=== PATIENT | male | born 1950 ===

== ENCOUNTER 2025-05-21 13:53 | Outpatient (AMB) | payer MEDICAID, SELFPAY ==
--- NOTE | 2025-05-21 13:59 | MHC.OFFVIS ---
Intake Visit Reasons: 2 Months Migrane/Dementia Allergies No Known Allergies Allergy (Verified 05/18/25 14:39) HPI Comments Details: The patient is a 75-year-old male presenting with memory impairment. Episodes of confusion, disorientation, and nocturnal discussions are noted, with variable occurrences of anger. His headaches are described as unusual sensations felt on one side, with alleviation attempts using ibuprofen being limited due to blood thinner interactions. Current medications include Memantine 5 mg twice daily, [place] at bedtime, and Depakote once a day, with a recent halt in some medications in anticipation of diagnostic studies. [facility] Medical History (Updated 05/21/25 @ 14:01 by Jeffrey Chavez MD) PAF (paroxysmal atrial fibrillation) HLD (hyperlipidemia) Hypertension Vascular dementia Depression Insomnia Migraine Cerebral microvascular disease Alzheimer disease Multifactorial dementia Review of Systems Const Details: - Neurological: Reports episodes of confusion, memory impairment, and headaches with a sensation of elado. - Psychological: Reports periods of anger and agitation. - General: Denies syncope. Physical Exam Neuro Other: Mental Status: He is alert and awake mostly keeping quite in his was communicating. Into was performed with the help of an boatswain's mate. Cranial Nerves: CN II: Visual ruano full to confrontation, visual acuity intact. CN III, IV, : Pupils equal, round, reactive to light and accommodation. Extraocular movements are normal. CN V: Facial sensation is normal. CN VII: Facial movements symmetrical. CN VIII: Hearing intact to bedside conversation is normal. CN IX, X: Palate elevates symmetrically. CN XI: Shoulder shrug and head turn symmetrical. CN XII: Tongue midline without atrophy or fasciculations. Extrapyramidal: Full facial expressions and blinking. No rigidity. Movements are appropriate with no tremor or abnormality. Speech: Normal; no dysarthria or tremor. Assessment & Plan Assessment & Plan (1) Multifactorial dementia: Comment: CT brain WO at [facility] in 2021: Mild PT atrophy, mild MVD Code(s): F03.90 - Unspecified dementia, unspecified severity, without behavioral disturbance, psychotic disturbance, mood disturbance, and anxiety Category: Medical (2) Migraine: Code(s): G43.909 - Migraine, unspecified, not intractable, without status migrainosus Category: Medical Qualifiers: Migraine type: migraine (< 15 days per month) without aura Status migrainosus presence: without status migrainosus Intractability: not intractable Qualified Code(s): G43.009 - Migraine without aura, not intractable, without status migrainosus Plan Impression: a: Moderate dementia probably of Alzheimer type b: Migraine type headaches. Rec: a: Memantine 5mg bid b: Donepezil 10mg at bedtime c: Divalproex acid 250mg one at bedtime Medications: New donepezil 10 mg PO BEDTIME 90 tabs 1RF Changed From divalproex 250 mg PO ONCE 90 tabs 0RF To divalproex 250 mg orally one at bedtime; 90 tabs 1RF Refilled memantine (Namenda) 5 mg PO BID 180 tabs 1RF 90 days Coding Level of Care Code Est Pt Level 4 (73776) Diagnoses Multifactorial dementia F03.90 Migraine without aura and without status migrainosus, not intractable G43.009 Migraine type: migraine (< 15 days per month) without aura Status migrainosus presence: without status migrainosus Intractability: not intractable
--- OUTSIDE RECORDS SUMMARY | 2025-05-21 14:45 | XMS_ITS | Clinical Summary ---
Author Organization [facility] Address [address] [place] [address] Phone Care Team Providers Care Senior Python Developer Name Role Phone Scooter Luong MD Primary Care Provider [phone] Allergies Active Allergy Reactions Criticality Noted Date Comments Oxycodone-Acetaminophen 02/10/2013 GI problem Warfarin 09/15/2024 Medications alcohol swabs (Alcohol Prep Pads) pads, medicated 1 each by Not Applicable route. 1 Active atorvastatin (LIPITOR) 40 mg tabletIndications :Essential hypertension Take 1 tablet (40 mg total) by mouth 1 (one) time each day. 90 tablet 1 5 Active dulaglutide (Trulicity) 3 mg/0.5 mL pen injector injectionIndicati ons:Type 2 diabetes mellitus with other specified complication, with long-term current use of insulin ([facility] V24, [facility] V28) Inject 0.5 mL (3 mg total) under the skin every 7 (seven) days. 3 mL 11 5 Active pen needle, diabetic (BD Ultra-Fine Short Pen Needle) 31 gauge x 5/16 needle Use to inject 1 times daily as directed 100 each 11 5 Active blood-glucose meter (OneTouch Verio Flex meter) misc Use to check BS daily 1 each 5 Active lancets lancets Check blood sugar 1 times a day or as directed 100 each 3 5 01/10/20 26 Active blood sugar diagnostic (OneTouch Verio test strips) test strip Use to check BS daily 100 each 5 02/17/20 26 Active amLODIPine (NORVASC) 10 mg tabletIndications :Essential hypertension Take 1 tablet (10 mg total) by mouth 1 (one) time each day. 90 each 1 5 08/23/20 25 Active apixaban (ELIQUIS) 5 mg tablet Take 1 tablet (5 mg total) by mouth 2 (two) times a day. 180 tablet 1 5 Active losartan (COZAAR) 50 mg tablet Take 1 tablet (50 mg total) by mouth 1 (one) time each day. 90 tablet 1 5 Active docusate sodium (Colace) 100 mg capsule Take 1 capsule (100 mg total) by mouth 2 (two) times a day. 180 each 1 5 Active acetaminophen (TYLENOL) 325 mg tablet Take 2 tablets (650 mg total) by mouth every 4 (four) hours if needed. 5 Active donepeziL (ARICEPT) 5 mg tablet Take 1 tablet (5 mg total) by mouth at bedtime. 5 Active divalproex (DEPAKOTE) [address] tablet Take 1 tablet (250 mg total) by mouth 1 (one) time each day. 5 Active empagliflozin (JARDIANCE) 10 mg tabletIndications :Type 2 diabetes mellitus with other specified complication, with long-term current use of insulin (CMS/[facility] V24, CMS/HCC V28) Take 1 tablet (10 mg total) by mouth 1 (one) time each day. 30 each 5 5 Active blood-glucose sensor (FreeStyle Medhat 3 Plus Sensor) deviceIndications :Type 2 diabetes mellitus with other specified complication, with long-term current use of insulin (CMS/HCC V24, CMS/HCC V28) Box = Kit = EA 2 each 5 Active blood-glucose,rec eiver,cont (FreeStyle Medhat 3 Lucien) miscIndications:T ype 2 diabetes mellitus with other specified complication, with long-term current use of insulin (CMS/HCC V24, CMS/HCC V28) Use to check Bs 1 each 5 Active insulin glargine (Lantus Solostar U-100 Insulin) 100 unit/mL (3 mL) injection penIndications:Ty pe 2 diabetes mellitus with other specified complication, with long-term current use of insulin ([facility] V24, [facility] V28) 16 units SC at bedtime 45 mL 3 5 Active memantine (NAMENDA) 5 mg tablet TOME LEONID TABLETA POR V A ORAL DOS VECES AL D A 5 Active mirtazapine (REMERON) 7.5 mg tablet Take 1 tablet (7.5 mg total) by mouth at bedtime. Active ibuprofen (ADVIL,MOTRIN) 400 mg tablet Take 1 tablet (400 mg total) by mouth every 6 (six) hours if needed for mild pain. Active Active Problems Problem Noted Date Diagnosed Date Odynophagia 04/08/2025 Globus sensation 04/08/2025 Weight loss 04/08/2025 Cerebrovascular accident (CVA) ([facility] V24, [facility] V28) 02/24/2025 A-fib ([facility] V24, [facility] V28) 09/15/2024 Overview (09/15/2024): Pradaxa due to coumadin allergy CAD (coronary artery disease) 09/15/2024 Essential hypertension 09/15/2024 Hand pain 09/15/2024 History of MA (myocardial infarction) 09/15/2024 Overview (09/15/2024): Stress Test by Dr. Hernandez in 01/2013, stable Cirrhosis ([facility] V24, [facility] V28) 03/06/2024 Chronic cough 06/12/2023 Overview (09/15/2024): Last Assessment & Plan: 73-year-old man, non-smoker with chronic cough for approximately 2 months. Patient denies any history of asthma, denies any wheezing or dyspnea on exertion and states that the cough is only occasional. Given the results of the pulmonary function test that were normal, I assured him that he does not have asthma or COPD. He he was prescribed with PPIs by primary care because of possible reflux. If he continue he may need a referral to GI that can produce the hoarseness and some cough. I will see him back in 6 months. Hoarseness 06/12/2023 Overview (09/15/2024): Last Assessment & Plan: Stents could be the result of irritation by reflux or local abnormalities. No acute findings on CT that can explain the hoarseness. He may need an indirect laryngoscopy. I have placed a referral to ENT for evaluation. Type 2 diabetes mellitus wit h other specified complication ([facility] V24, [facility] V28) 02/09/2023 Chronic midline low back pain without sciatica 0 02/02/2023 Thyroid nodule 12/08/2022 Overview (09/15/2024): Chest CT 12/19/2022 Head injury 09/04/2022 Ascending aorta dilation ([facility] V24) 8 Overview (09/15/2024): 4.2cm x 4.2cm on chest CT 03/06/2018 Erectile dysfunction 07/04/2017 Vitamin B12 deficiency 10/10/2016 Dyslipidemia 02/14/2013 Encounters Date Type Department Care Team Description 04/27/2025 Telephone Gastroenterology [facility] [address] [facility] 175 [facility] [address] [place] [address] Catarina Jones LPN Anticoagulation (Upper endoscopy on 05/22/[address] Torrez) 04/21/2025 Telephone [facility] - [facility] [address] [facility] [place] [address] Mia Gonzalez, KB Follow-up (Answering service call 04/19 regarding Divalproex) 04/17/2025 7:49 AM EDT - 04/17/2025 11:59 PM EDT Hospital Encounter [facility] Endoscopy [address] [place] [address] Adam Torrez MD Claudio, Raymund, CRNA Dasilva, John E, MD Odynophagia; Globus sensation; Weight loss Discharge Disposition: Home or Self Care 04/17/2025 Telephone Gastroenterology - [address] [phone] Adam Torrez MD 04/09/2025 9:30 AM EDT Office Visit Endocrinology - [address] [phone] Soledad Durbin PA Type 2 diabetes mellitus with other specified complication, with long-term current use of insulin (CMS/HCC V24, CMS/HCC V28) (Primary Dx); Thyroid nodule; Essential hypertension 04/09/2025 Telephone Endocrinology - [address] [phone] Soledad Durbin PA Medication Problem 04/09/2025 Telephone Gastroenterology - [address] [place] [phone] Adam Torrez MD 04/08/2025 1:40 PM EDT Consult Gastroenterology - [address] [place] [phone] Adam Torrez MD Odynophagia (Primary Dx); Globus sensation; Weight loss 04/08/2025 Telephone [facility] [address] [place], [place] [address], [place] [phone] Scooter Luong MD Fitting for DME 04/07/2025 10:15 AM EDT Office Visit [place] Medicine [address] [phone] Sharon Courtney NP Confusion (Primary Dx); Cerebrovascular accident (CVA), unspecified mechanism (CMS/HCC V24, CMS/HCC V28); Atrial fibrillation, unspecified type (CMS/HCC V24, CMS/HCC V28); Essential hypertension 04/06/2025 Telephone [facility] - [facility] [address] [place], [place] [address], [place] [phone] Scooter Luong MD Depression 04/01/2025 11:00 AM EDT [facility] [address] [place] [address] Shi Ness MD Loss of voice (Primary Dx); Thyroid nodule; Odynophagia 04/01/2025 8:34 AM EDT - 04/01/2025 11:59 PM EDT Hospital Encounter Radiology Department - [address] [phone] Thyroid nodule Discharge Disposition: Home or Self Care 04/01/2025 Telephone Endocrinology - [address] [phone] Soledad Durbin PA Thyroid Problem 03/17/2025 Telephone Internal Medicine - [address] [phone] Scooter Luong MD VNA 03/11/2025 Telephone Internal Medicine - [address] [phone] Scooter Luong MD Faxed Order ([facility] ([id number])) 03/09/2025 Telephone Internal Medicine - [address] [phone] Scooter Luong MD VNA 03/04/2025 Billing Patient Not Present Internal Medicine - [address] [phone] Scooter Luong MD Aphasia following cerebral infarction (Primary Dx); Permanent atrial fibrillation (CMS/HCC V24, CMS/HCC V28); Hypertensive chronic kidney disease w stg 1-4/unsp chr kdny; Type 2 diabetes mellitus with chronic kidney disease, without long-term current use of insulin, unspecified CKD stage (CMS/HCC V24, CMS/HCC V28); Chronic kidney disease, unspecified CKD stage; Old myocardial infarction; Hyperlipidemia, unspecified hyperlipidemia type; Other amnesia; Restlessness and agitation; Headache, unspecified headache type 02/27/2025 12:35 PM EDT - 02/27/2025 11:59 PM EDT Hospital En[facility] [address] [place] [address] Thyroid nodule Discharge Disposition: Home or Self Care 02/25/2025 Telephone [facility] [address] [phone] Scooter Luong MD Faxed Order ( [facility] ([id number])) 02/24/2025 10:30 AM EDT Office Visit Internal Medicine - [address] [phone] Scooter Luong MD Cerebrovascular accident (CVA), unspecified mechanism (CMS/HCC V24, CMS/HCC V28) (Primary Dx); Essential hypertension; Paroxysmal atrial fibrillation (CMS/HCC V24, CMS/HCC V28) 02/24/2025 Telephone [facility] [address] [phone] Scooter Luong MD Faxed Order ([facility] ([id number])) 02/24/2025 Telephone Internal Medicine - [address] [phone] Scooter Luong MD Faxed Order ([facility] ([id number])) 02/24/2025 Telephone Internal Medicine - [address] [phone] Scooter Luong MD Faxed Order ([facility] ([id number])) 02/20/[address] [phone] Soledad Durbin PA Medication Problem from Last 3 Months Immunizations Name Administration Dates Next Due Influenza Quadravalent, 0.5m l (Fluzone High-dose) 65yo and older 11/28/2020 Influenza trivalent, 0.5mL ( Fluzone High-dose) 65yo and older 07/06/2023,08/04/2022,08/27/2018,2016 Influenza trivalent, with preservative (Fluzone; Afluria) 6mo and older 08/20/2015,10/21/2014 Pneumococcal conjugate 13 va lent (Prevnar 13, PCV13) 2mo and older 06/02/2016 Td Tetanus diptheria (Tdvax) 7yo and older 02/13/2014 Surgical History Surgery Date Site/Laterality Comments KNEE SURGERY 1989 PROCEDURE: HISTORICAL KNEE SURGERY BACK SURGERY 1981, 1982, 1983 PROCEDURE: HISTORICAL BACK SURGERY Medical History Medical History Date Comments Type II or unspecified type diabetes mellitus without mention of complication, not stated as uncontrolled 1999 DX:Type II or unspecified ty pe diabetes mellitus without mention of complication, not stated as uncontrolled HTN (hypertension) 1999 DX:HTN (hyper tension) Hand pain DX:Hand pain History of MA (myocardial infarction) 2004 DX:History of MA (myocardial infarction); COMMENT: Stress Test by Dr. Hernandez in 01/2013, stable CAD (coronary artery disease) DX :CAD (coronary artery disease) A-fib (CMS/HCC V24, CMS/HCC V28) 2004 DX:A-fib ([facility]); COMMENT: on pradaxa by Dr. hernandez Thyroid nodule 12/08/2022 Family History Medical History Relation Name Comments Diabetes Brother 1 Hypertension Brother 2 Diabetes Father Hypertension Father Diabetes Mother Hypertension Mother Blindness Neg Hx Cataracts Neg Hx Glaucoma Neg Hx Macular degeneration Neg Hx Strabismus Neg Hx Relation Name Status Comments Brother 1 Brother 2 Father Mother Social History Tobacco Use Types Packs/Day Years Used Date Smoking Tobacco: Never Smokeless Tobacco: Never Tobacco Cessation:Counseling Given: Not Answered Alcohol Use Standard Drinks/Week Comments No 0 (1 standard drink = 0.6 oz pur e alcohol) Sex and Gender Information Value Date Recorded Sex Assigned at Not on file Legal Sex Male 2:31 PM EST Gender Identity Not on file Sexual Orientation Not on file Obstetrics History Last Filed Vital Signs Vital Sign Reading Time Taken Comments Blood Pressure 128/68 04/09/2025 9:36 AM EDT C Pulse 79 04/09/2025 9:36 AM EDT Temperature 36.1 C (96.9 F) 04/09/2025 9:36 AM EDT Respiratory Rate - - Oxygen Saturation 98% 01/07/2025 8:43 AM EDT Inhaled Oxygen Concentration - - Weight 87.1 kg (192 lb) 05/15/2025 10:00 AM EDT Height 193 cm (6' 4 ) 05/15/2025 10:00 AM EDT Body Mass Index 23.37 05/15/2025 10:00 AM EDT Plan of Treatment Upcoming Encounters Date Type Department Care Team (Late st Contact Info) Description 05/22/2025 9:30 AM EDT Hospital Encounter [facility] Endoscopy [address] [place] [phone] Adam Torrez MD [address] [address] Tu Kolb CRNA Need Address Info Anabel Romero MD [address] [place] [address] 06/19/2025 1:00 PM EDT Office Visit Internal Medicine - [address] [phone] Scooter Luong MD [address] [place] [address] Health Maintenance Due Date Last Done Comments Diabetes: Annual Foot Exam 01/09/1958 Diabetes: Annual Retina Eye Exam 01/09/1958 Zoster Vaccines (1 of 2) 01/09/1967 Pneumococcal Vaccine: 50+ Years (2 of 2 - PPSV23) 07/28/2016 06/02/2016 Falls Risk Assessment 09/16/2022 Medicare Annual Wellness Visit 09/16/2022 Social Influencers of Health Screening 09/16/2022 RSV Immunization Adult Patients (1 - 1-dose 75+ series) 01/09/2023 DTaP,Tdap,and Td Vaccines (2 - Td or Tdap) 02/14/2024 02/13/2014 COVID-19 Vaccine ( season) 2024 02/10/2022, 10/13/2021, 01/13/2021 Depression Screening 10/08/2024 Influenza Vaccine (#1) 2025 , 08/04/2022, 11/28/2020, Additional history exists Diabetes: Blood Sugar Control Test (HGBA1C) 10/10/2025 04/09/2025, 01/08/2025, 05/27/2024, Additional history exists Diabetes: Annual GFR (Glomerular Filtration Rate) 04/01/2026 04/01/2025, 05/27/2024 Hypertension/CHF/CAD Annual BMP Blood Test 04/01/2026 04/01/2025, 05/27/2024 Diabetes: Annual Urine Albumin-Creatinine Ratio (uACR) 04/06/2026 04/06/2025, 01/08/2025 Cholesterol Screening (Lipid Panel) 04/01/2030 04/01/2025, 05/27/2024, 05/27/2024 Hepatitis C Screening Completed 02/13/2014 HIB Vaccines Aged Out No longer eligi ble based on patient's age to complete this topic HPV Vaccines Aged Out No longer eligi ble based on patient's age to complete this topic Hepatitis A Vaccines Aged Out No long er eligible based on patient's age to complete this topic Hepatitis B Vaccines Aged Out No long er eligible based on patient's age to complete this topic IPV Vaccines Aged Out No longer eligi ble based on patient's age to complete this topic MMR Vaccines Aged Out No longer eligi ble based on patient's age to complete this topic Meningococcal ACWY Vaccine Aged Out N o longer eligible based on patient's age to complete this topic Meningococcal B Vaccine Aged Out No l onger eligible based on patient's age to complete this topic RSV Immunization Patients Under 20 months Aged Out No longer eligible based on patient's age to complete this topic Varicella Vaccines Aged Out No longer eligible based on patient's age to complete this topic Procedures Procedure Name Priority Date/Time Associated Diagnosis Comments HEMOGLOBIN A1C Routine 04/09/2025 10:11 AM EDT Type 2 diabetes mellitus with other specified complication, with long-term current use of insulin ([facility] V24, [facility] V28) POC GLUCOSE Routine 04/09/2025 9:30 AM EDT Type 2 diabetes mellitus with other specified complication, with long-term current use of insulin ([facility] V24, [facility] V28) MICROALBUMIN AND CREATININE WITH RATIO, URINE 24H Routine 04/06/2025 1:02 PM EDT Type 2 diabetes mellitus with other specified complication, with long-term current use of insulin (CMS/HCC V24, CMS/HCC V28) LIPID PANEL WITH REFLEX TO DIRECT LDL Routine 04/01/2025 12:15 PM EDT Essential hypertension ALANINE AMINOTRANSFERASE Routine 025 12:15 PM EDT Essential hypertension ASPARTATE AMINOTRANSFERASE Routine 04/01/2025 12:15 PM EDT Essential hypertension BASIC METABOLIC PANEL Routine 04/01/2025 12:15 PM EDT Essential hypertension COMPLETE BLOOD COUNT Routine 04/01/2025 12:15 PM EDT Restless leg Paroxysmal atrial fibrillation (CMS/HCC V24, CMS/HCC V28) THYROID STIMULATING HORMONE WITH REFLEX TO FREE T4 AND FREE T3 Routine 04/01/2025 12:15 PM EDT Thyroid nodule IRON AND TIBC Routine 04/01/2025 12:15 PM EDT Restless leg Paroxysmal atrial fibrillation (CMS/HCC V24, CMS/HCC V28) FERRITIN Routine 04/01/2025 12:15 PM EDT Restless leg Paroxysmal atrial fibrillation (CMS/HCC V24, CMS/HCC V28) US GUIDED FINE NDL ASP 1ST LESION Routine 04/01/2025 9:11 AM EDT Thyroid nodule US HEAD NECK SOFT TISSUE Routine 025 1:07 PM EDT Thyroid nodule HEPATITIS C SCREENING Routine 02/13/2014 from Last 3 Months or Most Recently Relevant to Health Maintenance Results * (ABNORMAL) Hemoglobin A1c (04/09/2025 10:11 AM EDT) Hemoglobin A1C 7.5(H) <6.5 % LAB CHEMISTRY METHOD 04/09/2025 1:54 PM EDT [facility] Mean Bld Glu Estim. 169 mg/dL LAB CHEMISTRY METHOD 04/09/2025 1:54 PM EDT [facility] Blood Venous blood specimen / Unknown Venipuncture / Unknown 04/09/2025 10:11 AM EDT 04/09/2025 10:11 AM EDT us Soledad KELLOGG LAB BLOOD ORDERABLES Final Result [facility] [address] [place] [address], * POC glucose manually resulted (04/09/2025 9:30 AM EDT) Glucose POC 127 mg/dL Comment:Fasting Blood Capillary blood specimen / Unknown 04/09/2025 9:30 AM EDT Soledad KELLOGG POINT OF CARE TEST ENTER/ED IT ORDERABLES Final Result * Microalbumin and creatinine with ratio, urine 24h (04/06/2025 1:02 PM EDT) [facility] Signature Microalb, Ur 7.5 0.0 - 29.0 mg/L LAB CHEMISTRY METHOD 04/06/2025 8:24 PM EDT [facility] Creatinine, Urine 46.0 mg/dL LAB CHEMISTRY METHOD 04/06/2025 8:24 PM EDT [facility] Microalb, 24H Ur 21.4 <30.0 mg/24 hr LAB CHEMISTRY METHOD 04/06/2025 8:24 PM EDT [facility] Microalb/Creat Ratio 16 <30 mg/g creat LAB CHEMISTRY METHOD 04/06/2025 8:24 PM EDT [facility] Urine Volume 2,850 mL LAB CHEMISTRY METHOD 04/06/2025 8:24 PM EDT [facility] Collection Interval, Ur 24 hr LAB CHEMISTRY METHOD 04/06/2025 8:24 PM EDT [facility] Urine Urine specimen from urethra / Unknown Non-blood Collection / Unknown 04/06/2025 1:02 PM EDT 04/06/2025 1:02 PM EDT us Soledad KELLOGG LAB URINE ORDERABLES Final Result Performing Organization Address [facility]/ZIP Co de Phone Number [facility] [address] [place] [address], [place] [phone] * Thyroid stimulating hormone with reflex to free t4 and free t3 (04/01/2025 12:15 PM EDT) Pathologist [facility] TSH 1.68 0.40 - 4.00 mcIU/mL LAB CHEMISTRY METHOD 04/01/2025 7:13 PM EDT [facility] Blood Venous blood specimen / Unknown Venipuncture / Unknown 04/01/2025 12:15 PM EDT 04/01/2025 12:15 PM EDT us Shi Ness MD LAB BLOOD ORDERABLES Final Res ult Performing Organization Address [facility] [[email or web address]] Co de Phone Number [facility] [address] [place] [address], [place] [phone] * (ABNORMAL) Lipid panel with reflex to direct LDL (04/01/2025 12:15 PM EDT) Cholesterol 106 0 - 200 mg/dL LAB CHEMISTRY METHOD 04/01/2025 5:03 PM EDT [facility] Triglycerides 151(H) 0 - 150 mg/dL LAB CHEMISTRY METHOD 04/01/2025 5:03 PM EDT [facility] HDL 29(L) >=40 mg/dL LAB CHEMISTRY METHOD 04/01/2025 5:03 PM EDT [facility] LDL Calculated 47 0 - 100 mg/dL LAB CHEMISTRY METHOD 04/01/2025 5:03 PM EDT [facility] VLDL Cholesterol Teddy 30.2 mg/dL LAB CHEMISTRY METHOD 04/01/2025 5:03 PM EDT [facility] Non HDL Chol. (LDL+VLDL) 77 <145 mg/dL LAB CHEMISTRY METHOD 04/01/2025 5:03 PM EDT [facility] Chol/HDL Ratio 3.7 0.0 - 4.4 LAB CHEMISTRY METHOD 04/01/2025 5:03 PM EDT [facility] Blood Venous blood specimen / Unknown Venipuncture / Unknown 04/01/2025 12:15 PM EDT 04/01/2025 12:15 PM EDT us Scooter Luong MD LAB BLOOD ORDERABLES Final Res ult Performing Organization Address [facility]/ZIP Co de Phone Number [facility] [address] [place] [address], [place] [phone] * (ABNORMAL) Iron and TIBC (04/01/2025 12:15 PM EDT) Iron 80 50 - 160 mcg/dL LAB CHEMISTRY METHOD 04/01/2025 5:03 PM EDT [facility] TIBC 247(L) 250 - 450 mcg/dL LAB CHEMISTRY METHOD 04/01/2025 5:03 PM EDT [facility] Iron Saturation 32 20 - 50 % LAB CHEMISTRY METHOD 04/01/2025 5:03 PM EDT [facility] Blood Venous blood specimen / Unknown Venipuncture / Unknown 04/01/2025 12:15 PM EDT 04/01/2025 12:15 PM EDT us Scooter Luong MD LAB BLOOD ORDERABLES Final Res ult Performing Organization Address City/[facility]/ZIP Co de Phone Number [facility] [address] [place] [address], * (ABNORMAL) Complete blood count (04/01/2025 12:15 PM EDT) [facility] WBC 8.9 4.8 - 10.8 K/mcL LAB HEMETOLOGY METHOD 04/01/2025 2:44 PM EDT [facility] RBC 4.80 4.50 - 5.50 M/mcL LAB HEMETOLOGY METHOD 04/01/2025 2:44 PM EDT [facility] Hemoglobin 14.3 13.5 - 17.5 g/dL LAB HEMETOLOGY METHOD 04/01/2025 2:44 PM EDT [facility] Hematocrit 43.4 42.0 - 54.0 % LAB HEMETOLOGY METHOD 04/01/2025 2:44 PM EDT [facility] MCV 90.4 79.0 - 98.0 FL LAB HEMETOLOGY METHOD 04/01/2025 2:44 PM EDT [facility] MCH 29.8 27.0 - 32.0 pcg LAB HEMETOLOGY METHOD 04/01/2025 2:44 PM EDT [facility] MCHC 32.9 32.0 - 37.0 g/dL LAB HEMETOLOGY METHOD 04/01/2025 2:44 PM EDT [facility] RDW 12.7 11.0 - 15.0 % LAB HEMETOLOGY METHOD 04/01/2025 2:44 PM EDT [facility] Platelets 230 130 - 400 K/mcL LAB HEMETOLOGY METHOD 04/01/2025 2:44 PM EDT [facility] MPV 11.6(H) 7.0 - 11.0 FL LAB HEMETOLOGY METHOD 04/01/2025 2:44 PM EDT [facility] NRBC 0.0 <1.0 % LAB HEMETOLOGY METHOD 04/01/2025 2:44 PM EDT [facility] NRBC Absolute 0.00 <0.10 K/mcL LAB HEMETOLOGY METHOD 04/01/2025 2:44 PM EDT [facility] Blood Venous blood specimen / Unknown Venipuncture / Unknown 04/01/2025 12:15 PM EDT 04/01/2025 12:15 PM EDT us Scooter Luong MD LAB BLOOD ORDERABLES Final Res ult Performing Organization Address [facility]/State/ZIP Co de Phone Number [facility] [address] [place] [address], [place] [phone] * Alanine aminotransferase (04/01/2025 12:15 PM EDT) ALT (SGPT) 22 10 - 60 unit/L LAB CHEMISTRY METHOD 04/01/2025 5:03 PM EDT [facility] Blood Venous blood specimen / Unknown Venipuncture / Unknown 04/01/2025 12:15 PM EDT 04/01/2025 12:15 PM EDT us Scooter Luong MD LAB BLOOD ORDERABLES Final Res ult Performing Organization Address [facility]/ZIP Co de Phone Number [facility] [address] [place] [address], [place] [phone] * Aspartate aminotransferase (04/01/2025 12:15 PM EDT) AST (SGOT) 11 10 - 42 unit/L LAB CHEMISTRY METHOD 04/01/2025 5:03 PM EDT [facility] Blood Venous blood specimen / Unknown Venipuncture / Unknown 04/01/2025 12:15 PM EDT 04/01/2025 12:15 PM EDT us Scooter Luong MD LAB BLOOD ORDERABLES Final Res ult [facility] [address] [place] [address], [place] [phone] * Ferritin (04/01/2025 12:15 PM EDT) [facility] Ferritin 179 26 - 388 ng/mL LAB CHEMISTRY METHOD 04/01/2025 5:03 PM EDT [facility] Blood Venous blood specimen / Unknown Venipuncture / Unknown 04/01/2025 12:15 PM EDT 04/01/2025 12:15 PM EDT Scooter Luong MD LAB BLOOD ORDERABLES Final Res ult Performing Organization Address [facility]/ZIP Co de Phone Number [facility] [address] [place] [address], [place] [phone] * (ABNORMAL) Basic metabolic panel (04/01/2025 12:15 PM EDT) [facility] Sodium 140 133 - 145 mmol/L LAB CHEMISTRY METHOD 04/01/2025 5:03 PM [facility] Potassium 4.9 3.5 - 5.5 mmol/L LAB CHEMISTRY METHOD 04/01/2025 5:03 PM [facility] Chloride 106 96 - 110 mmol/L LAB CHEMISTRY METHOD 04/01/2025 5:03 PM [facility] CO2 24 21 - 32 mmol/L LAB CHEMISTRY METHOD 04/01/2025 5:03 PM [facility] Anion Gap 10 3 - 11 LAB CHEMISTRY METHOD 04/01/2025 5:03 PM [facility] Glucose 215(H) 70 - 100 mg/dL LAB CHEMISTRY METHOD 04/01/2025 5:03 PM [facility] BUN 17 5 - 25 mg/dL LAB CHEMISTRY METHOD 04/01/2025 5:03 PM [facility] Creatinine 1.36(H) 0.70 - 1.30 mg/dL LAB CHEMISTRY METHOD 04/01/2025 5:03 PM EDT [facility] eGFR 54(L) >=60 mL/min/1. 73m2 LAB CHEMISTRY METHOD 04/01/2025 5:03 PM EDT [facility] Comment:Calculation based on the Chronic Kidney Disease Epidemiology Collaboration (CKD-EPI) equation refit without adjustment for race. BUN/Creatinine Ratio 12.5 LAB CHEMISTRY METHOD 04/01/2025 5:03 PM EDT [facility] Calcium 9.8 8.5 - 10.5 mg/dL LAB CHEMISTRY METHOD 04/01/2025 5:03 PM EDT [facility] Blood Venous blood specimen / Unknown Venipuncture / Unknown 04/01/2025 12:15 PM EDT 04/01/2025 12:15 PM EDT us Scooter Luong MD LAB BLOOD ORDERABLES Final Res ult [facility] [address] [place] [address], * US Guided Fine Ndl Asp 1st Lesion (04/01/2025 9:11 AM EDT) Anatomical Region Laterality Modality Ultrasound 04/01/2025 10:0 5 AM EDT Impressions 04/01/2025 10:08 AM EDT 1. The right midpole nodule was rescanned for identification purposes. The nodule is stable in size and morphology from the 12/12/2023 examination, therefore the procedure was canceled. Continue sonographic follow-up if clinically indicated Findings were explained to the patient and patient's grandson. -------- FINAL REPORT -------- Dictated By: Vinny Baca Dictated Date: 04/01/2025 10:05 ET Assigned Physician: Vinny Baca Reviewed and Electronically Signed By: Vinny Baca Signed Date: 04/01/2025 10:08 ET Workstation ID: [id number] Transcribed By: Self Edit Transcribed Date: 04/01/2025 10:05 ET Narrative 04/01/2025 10:08 AM EDT THYROID FNA CLINICAL HISTORY: Patient presents for ultrasound-guided fine-needle aspiration of the right mid pole thyroid nodule. PROCEDURES: 1. Limited pre procedure ultrasound of the right mid pole thyroid nodule. Findings: During the examination, the right midpole nodule was scanned for identification purposes. The nodule measured 1.0 x 1.4 x 1.1 cm and is morphologically stable in size and appearance from prior examination dated 12/12/2023. The patient also had sampling of this nodule on 01/03/2024. Therefore, the fine-needle aspiration today was canceled. Procedure Note Vinny Baca MD - 04/01/2025 THYROID FNA CLINICAL HISTORY: Patient presents for ultrasound-guided fine-needleaspiration of the right mid pole thyroid nodule. PROCEDURES: 1. Limited pre procedure ultrasound of the right mid pole thyroid nodule. Findings: During the examination, the right midpole nodule was scanned foridentification purposes. The nodule measured 1.0 x 1.4 x 1.1 cm and ismorphologically stable in size and appearance from prior examination dated12/12/2023. The patient also had sampling of this nodule on 01/03/2024.Therefore, the fine-needle aspiration today was canceled. IMPRESSION: 1. The right midpole nodule was rescanned for identification purposes.The nodule is stable in size and morphology from the 12/12/2023examination, therefore the procedure was canceled. Continue sonographicfollow-up if clinically indicated Findings were explained to the patient and patient's grandson. -------- FINAL REPORT -------- Dictated By: Vinny Baca Dictated Date: 04/01/2025 10:05 ET Assigned Physician: Vinny Baca Reviewed and Electronically Signed By: Vinny Baca Signed Date: 04/01/2025 10:08 ET Workstation ID: [id number] Transcribed By: Self Edit Transcribed Date: 04/01/2025 10:05 ET us Soledad KELLOGG IMJames US PROCEDURES Final Res ult * US Head Neck Soft Tissue (02/27/2025 1:07 PM EDT) Anatomical Region Laterality Modality Head and Neck Ultrasound 02/27/2025 2:52 PM EDT Addenda Addendum by Kate Mueller MD on 03/17/2025 2:54 PM EDT Addendum to the report. Enlarging nodule in the midpole of the right thyroid lobe is circumscribed with homogeneous slightly hypoechoic echotexture and no abnormal vascularity on color Doppler examination. Considering interval increase in size ultrasound-guided biopsy of this nodule is recommended. -------- ADDENDUM -------- Dictated By: Kate Mueller Dictated Date: 03/17/2025 14:44 ET Assigned Physician: Kate Mueller Reviewed and Electronically Signed By: Kate Mueller Signed Date: 03/17/2025 14:54 ET Workstation ID: [id number] Transcribed By: Self Edit Transcribed Date: 03/17/2025 14:44 ET Narrative 02/27/2025 3:10 PM EDT Thyroid ultrasound. History follow-up on thyroid nodules. Comparison with previous examination from 12/12/2023. Thyroid gland was visualized with normal echogenicity and flow on color Doppler examination. Right thyroid lobe measures 4.7 x 1.8 x 2.2 cm. There is interval enlargement of the solid nodule in the midpole which on today's study measuring 1.7 x 1.3 x 1.4 cm as opposed to 1.4 x 1.1 x 1 cm. There is are also slight interval enlargement of the nodule in the lower pole which on today's study measuring 0.9 x 0.6 x 0.8 cm, previously 0.7 x 0.5 x 0.8 cm. There are a few coarse calcifications in the face nodule. Left thyroid lobe was visualized measuring 4.2 x 1.3 x 1.4 cm. There is a tiny mixed echogenicity nodule in the midpole measuring 0.4 x 0.3 x 0.3 cm, previously 0.3 x 0.2 x 0.3 cm. Isthmus measures 3 mm. CONCLUSIONS: Interval enlargement of the nodules in the right thyroid lobe. Stable small nodule in the left thyroid lobe. -------- FINAL REPORT -------- Dictated By: Kate Mueller Dictated Date: 02/27/2025 14:52 ET Assigned Physician: Kate Mueller Reviewed and Electronically Signed By: Kate Mueller Signed Date: 02/27/2025 15:10 ET Workstation ID: [id number] Transcribed By: Self Edit Transcribed Date: 02/27/2025 14:52 ET Procedure Note Kate Mueller MD - 02/27/2025 Thyroid ultrasound. History follow-up on thyroid nodules. Comparison with previous examination from 12/12/2023. Thyroid gland was visualized with normal echogenicity and flow on colorDoppler examination. Right thyroid lobe measures 4.7 x 1.8 x 2.2 cm. There is intervalenlargement of the solid nodule in the midpole which on today's studymeasuring 1.7 x 1.3 x 1.4 cm as opposed to 1.4 x 1.1 x 1 cm. There is arealso slight interval enlargement of the nodule in the lower pole which ontoday's study measuring 0.9 x 0.6 x 0.8 cm, previously 0.7 x 0.5 x 0.8 cm.There are a few coarse calcifications in the face nodule. Left thyroid lobe was visualized measuring 4.2 x 1.3 x 1.4 cm. There is atiny mixed echogenicity nodule in the midpole measuring 0.4 x 0.3 x 0.3cm, previously 0.3 x 0.2 x 0.3 cm. Isthmus measures 3 mm. CONCLUSIONS: Interval enlargement of the nodules in the right thyroidlobe. Stable small nodule in the left thyroid lobe. -------- FINAL REPORT -------- Dictated By: Kate Mueller Dictated Date: 02/27/2025 14:52 ET Assigned Physician: Kate Mueller Reviewed and Electronically Signed By: Kate Mueller Signed Date: 02/27/2025 15:10 ET Workstation ID: [id number] Transcribed By: Self Edit Transcribed Date: 02/27/2025 14:52 ET Soledad KELLOGG IMG US PROCEDURES Edited Re sult - Final * Hepatitis C Screening (02/13/2014) Hepatitis C Screening negative Historical Provider HEALTH MAINTENANCE Final Result from Last 3 Months or Most Recently Relevant to Health Maintenance Insurance [employer] MEDICA[place] - [place] Care Teams Senior Python Developer Relationship Specialty Start Date End Date Scooter Luong MD [address] [place] [id number] PCP - General Internal Medicine 09/15/24
== END 2025-05-21 14:13 | disposition home or self-care (01) ==
LOC: HO.HSM 13:54
PROVIDERS: PCP Internal Medicine; Referring Provider Internal Medicine; Visit Provider Psychiatry & Neurology Neurology
DX: F03.90 Unspecified dementia, unspecified severity, without behavioral disturbance, psychotic disturbance, mood disturbance, and anxiety (principal); G43.009 Migraine without aura, not intractable, without status migrainosus
CPT/HCPCS: 99214

== ENCOUNTER → 2025-05-21 13:53 | Outpatient (BNVA) | payer MEDICAID, SELFPAY | PROVIDERS: PCP Internal Medicine; Referring Provider Internal Medicine; Visit Provider Psychiatry & Neurology Neurology | DX: G43.009 Migraine without aura, not intractable, without status migrainosus (principal); F03.90 Unspecified dementia, unspecified severity, without behavioral disturbance, psychotic disturbance, mood disturbance, and anxiety | CPT/HCPCS: 99212 ==

== ENCOUNTER 2025-08-24 14:22 | Outpatient (AMB) | payer MEDICAID, SELFPAY ==
--- NOTE | 2025-08-24 14:40 | MHC.OFFVIS ---
Intake Visit Reasons: Sooner appt, concerns per Allergies No Known Allergies Allergy (Verified 05/18/25 14:39) HPI Comments Details: The patient is a 75-year-old male presenting with behavioral disturbances and insomnia associated with his dementia. His primary caregiver reports a significant increase in nocturnal confusion, hallucinations, and episodes of agitation. Initially responsive to sleep medication, his sleep patterns have deteriorated, limiting rest to approximately 10 to 15-minute intervals. These episodes are punctuated by vivid hallucinations and episodes of wandering that escalate at night. His spouse, who manages his care, indicates that the patient's hallucinations include visions of birds trying to attack him, a symptom likely exacerbated by his advanced dementia. The headaches he experiences are being treated, though their impact on his overall condition remains undetermined. The management of these conditions is further complicated by concurrent medical issues, including hypertension, diabetes, and the need for anticoagulation therapy. Adjustments in medication were discussed to alleviate these symptoms. [facility] Medical History (Updated 05/21/25 @ 14:01 by Jeffrey Chavez MD) PAF (paroxysmal atrial fibrillation) HLD (hyperlipidemia) Hypertension Vascular dementia Depression Insomnia Migraine Cerebral microvascular disease Alzheimer disease Multifactorial dementia Review of Systems Narrative - Neurological: Reports insomnia, hallucinations, and confusion. - Psychiatric: Reports episodes of agitation and behavioral disturbances. - Cardiovascular: Reports hypertension. - Endocrine: Reports diabetes mellitus type 2. Physical Exam Neuro Other: Mental Status: He is alert and awake keeping quite while I talked to his with help of an oak tanner. Cranial Nerves: CN II: Visual ruano full to confrontation, visual acuity intact. CN III, IV, : Pupils equal, round, reactive to light and accommodation. Extraocular movements are normal. CN V: Facial sensation is normal. CN VII: Facial movements symmetrical. CN VIII: Hearing intact to bedside conversation is normal. CN IX, X: Palate elevates symmetrically. CN XI: Shoulder shrug and head turn symmetrical. CN XII: Tongue midline without atrophy or fasciculations. Extrapyramidal: Full facial expressions and blinking. No rigidity. Movements are appropriate with no tremor or abnormality. Speech: Normal; no dysarthria or tremor. Assessment & Plan Assessment & Plan (1) Multifactorial dementia: Comment: CT brain WO at [facility] in 2021: Mild PT atrophy, mild MVD Code(s): F03.90 - Unspecified dementia, unspecified severity, without behavioral disturbance, psychotic disturbance, mood disturbance, and anxiety Category: Medical (2) Migraine: Code(s): G43.909 - Migraine, unspecified, not intractable, without status migrainosus Category: Medical Qualifiers: Migraine type: migraine (< 15 days per month) without aura Status migrainosus presence: without status migrainosus Intractability: not intractable Qualified Code(s): G43.009 - Migraine without aura, not intractable, without status migrainosus Plan Impression: a: Moderate dementia probably of Alzheimer type b: Migraine type headaches. c: Insomnia related to dementia d: Behavior symptoms related to dementia Rec: a: DC Memantine. b: DC Donepezil c: Continue Divalproex acid 500mg one at bedtimed d: Quetiapine 50mg one at bedtime e: DC Trazodone f: Escitaloprim 10mg in am Medications: New quetiapine 50 mg PO DAILY 90 tabs 0RF Coding Level of Care Code Est Pt Level 3 (31225) Global (21037) Diagnoses Multifactorial dementia F03.90 Migraine without aura and without status migrainosus, not intractable G43.009 Migraine type: migraine (< 15 days per month) without aura Status migrainosus presence: without status migrainosus Intractability: not intractable Time Spent (min) 30
== END 2025-08-24 15:03 | disposition home or self-care (01) ==
LOC: HO.HSM 14:23
PROVIDERS: PCP Internal Medicine; Visit Provider Psychiatry & Neurology Neurology
DX: F03.90 Unspecified dementia, unspecified severity, without behavioral disturbance, psychotic disturbance, mood disturbance, and anxiety (principal); G43.009 Migraine without aura, not intractable, without status migrainosus
CPT/HCPCS: 99213; G2211

== ENCOUNTER → 2025-08-24 14:22 | Outpatient (BNVA) | payer MEDICAID, SELFPAY | PROVIDERS: PCP Internal Medicine; Visit Provider Psychiatry & Neurology Neurology | DX: G43.009 Migraine without aura, not intractable, without status migrainosus (principal); F03.90 Unspecified dementia, unspecified severity, without behavioral disturbance, psychotic disturbance, mood disturbance, and anxiety | CPT/HCPCS: 99212 ==

== ENCOUNTER 2025-09-25 12:08 | Outpatient (AMB) | payer OTHER, MEDICAID, SELFPAY ==
--- NOTE | 2025-09-25 12:24 | A.OFFVIS_ITS ---
Intake Visit Reasons: Telehealth - Hallucinating Clothes Ironer Required: Yes Clothes Ironer Services: Clothes Ironer Present Clothes Ironer Name: Clothes Ironer ID number [id number] Information Interpreted: non-clinical & clinical Allergies No Known Allergies Allergy (Verified 05/18/25 14:39) HPI Comments Details: Nathaniel is a 75-year-old male patient with a past medical history of Hypertension, hyperlipidemia, paroxysmal atrial fibrillation on Eliquis, mixed dementia including Alzheimer's and vascular component, depression, insomnia, and behavioral disturbances presenting for a telehealth visit accompanied by his from [place] who provides most of today's history. She tells me that she is having significant difficulty with her 's behaviors at home. She tells me that he has not been sleeping at night, he has been agressive, and he is not eating. He is obsessing over the desire to go outside and looking for birds. He continues to have hallucinations and delu sions. He has not been taking his donepezil or memantine as advised by Dr. Chavez at time of last visit. He has not been taking his medications regularly due to refusals from time to time but seems to be taking the depakote 500mg nightly pretty regularly. His feels that the quetiapine has made his behaviors worse and she has tried giving him lorazepam but it has been ineffective. She has also tried giving him lorazepam which she has not found to be helpful. She also feels as though the escitalopram has made things worse. In general, she has a lot of difficulty knowing which medications has been helpful and which medications have not. She has concerns regarding polypharmacy. She has however been consistent with the Depakote 500 mg nightly which she so far has not felt has made him any worse but is not convinced that it is helping in any way. He has continued his other medications for blood pressure, atrial fibrillation, and cholesterol. [facility] Medical History (Updated 05/21/25 @ 14:01 by Jeffrey Chavez MD) PAF (paroxysmal atrial fibrillation) HLD (hyperlipidemia) Hypertension Vascular dementia Depression Insomnia Migraine Cerebral microvascular disease Alzheimer disease Multifactorial dementia Review of Systems Const All systems reviewed & are unremarkable except as noted in HPI and below Physical Exam Exam Exam: Deferred due to mode of visit. Telehealth Telehealth Telehealth Platform: Other (please specify) (VOYCE system with dial out from multifocal lens assembler ) Location of provider rendering services: practice address Location of patient: address on file Patient Identification confirmed using: Name, : Yes Telehealth method: voice only Patient verbally consented to treatment: Yes Patient verbally consented to billing insurance company: Yes Patient informed of any privacy concerns related to visit: Yes Minutes spent on Phone/Video with Pt.: 20 Assessment & Plan Assessment & Plan (1) Multifactorial dementia: Comment: [facility] brain WO at [facility] in 2021: Mild PT atrophy, mild MVD Code(s): F03.90 - Unspecified dementia, unspecified severity, without behavioral disturbance, psychotic disturbance, mood disturbance, and anxiety Category: Medical Plan Nathaniel is a 75-year-old male patient with a past medical history of Hypertension, hyperlipidemia, paroxysmal atrial fibrillation on Eliquis, mixed dementia including Alzheimer's and vascular component, depression, insomnia, and behavioral disturbances presenting for a telehealth visit accompanied by his from [place] who provides most of today's history. She has significant concerns regarding his medication and does not feel that any of what we have been prescribing has been helpful recently. He was recently taken off of his donepezil and memantine and placed on a higher dose of Depakote as well as Seroquel and escitalopram. She feels that the Seroquel and escitalopram have made things worse and does not feel that the lorazepam has made things any better in terms of sleeping. I am advising for 1 week that we continue the Depakote only. Once he has come off of the other medications, I would advise to start medications to help his moods 1 x 1 to better identify what is working and what is not working for him. We will follow up closely. I will have them return in a proximally 1 week at which time we will likely retry some of the existing medications 1 by 1. Plan: Continue Depakote 500 mg nightly For now, stop the quetiapine and escitalopram Follow-up in 1 week for medication adjustments Medications: Changed From apixaban (Eliquis) 5 mg PO BID To apixaban (Eliquis) 1x fill as a courtesy. Please do not send me future refill requests for this medication. 5 mg PO BID 60 tabs 0RF 30 days Coding Level of Care Code Tele Est Pt Level 4 (19559) Diagnoses Multifactorial dementia F03.90
--- OUTSIDE RECORDS SUMMARY | 2025-09-25 14:11 | XMS_ITS | Clinical Summary ---
Author Organization [facility] Address [address] [place] [address] Phone Care Team Providers Care Healthcare Analyst Name Role Phone Scooter Luong MD Primary Care Provider [phone] Allergies Active Allergy Reactions Criticality Noted Date Comments Oxycodone-Acetaminophen 02/10/2013 GI problem Warfarin 09/15/2024 Medications alcohol swabs (Alcohol Prep Pads) pads, medicated 1 each by Not Applicable route. 06/10/20 21 Active pen needle, diabetic (BD Ultra-Fine Short Pen Needle) 31 gauge x 5/16 needle Use to inject 1 times daily as directed 100 each 11 01/08/20 25 Active blood-glucose meter (OneTouch Verio Flex meter) misc Use to check BS daily 1 each 01/08/20 25 Active lancets lancets Check blood sugar 1 times a day or as directed 100 each 3 01/10/20 25 026 Active apixaban (ELIQUIS) 5 mg tablet Take 1 tablet (5 mg total) by mouth 2 (two) times a day. 180 tablet 1 02/25/20 25 Active losartan (COZAAR) 50 mg tablet Take 1 tablet (50 mg total) by mouth 1 (one) time each day. 90 tablet 1 02/25/20 25 Active docusate sodium (Colace) 100 mg capsule Take 1 capsule (100 mg total) by mouth 2 (two) times a day. 180 each 1 02/25/20 25 Active donepeziL (ARICEPT) 5 mg tablet Take 1 tablet (5 mg total) by mouth at bedtime. 03/20/20 25 Active empagliflozin (JARDIANCE) 10 mg tabletIndication s:Type 2 diabetes mellitus with other specified complication, with long-term current use of insulin ([facility] V24, [facility] V28) Take 1 tablet (10 mg total) by mouth 1 (one) time each day. 30 each 5 04/09/20 25 Active blood-glucose sensor (FreeStyle Medhat 3 Plus Sensor) deviceIndication s:Type 2 diabetes mellitus with other specified complication, with long-term current use of insulin ([facility] V24, [facility] V28) Box = Kit = EA 2 each 11 04/09/20 25 Active blood-glucose,re ceiver,cont (FreeStyle Medhat 3 Platina) miscIndications: Type 2 diabetes mellitus with other specified complication, with long-term current use of insulin ([facility] V24, [facility] V28) Use to check Bs 1 each 04/09/20 25 Active insulin glargine (Lantus Solostar U-100 Insulin) 100 unit/mL (3 mL) injection penIndications:T ype 2 diabetes mellitus with other specified complication, with long-term current use of insulin ([facility] V24, [facility] V28) 16 units SC at bedtime 45 mL 3 04/09/20 25 Active memantine (NAMENDA) 5 mg tablet TOME LEONID TABLETA POR V A ORAL DOS VECES AL D A 04/24/20 25 Active mirtazapine (REMERON) 7.5 mg tablet Take 1 tablet (7.5 mg total) by mouth at bedtime. Active hztaadib-ahb-ppq fran fumarate 15 mg iron tablet TOME 1 TABLETA POR V A ORAL TODOS LOS D 06/03/20 25 Active traZODone (DESYREL) 50 mg tablet Take 1 tablet (50 mg total) by mouth at bedtime. 06/03/20 25 Active Lexapro 10 mg tablet Take 1 tablet (10 mg total) by mouth 1 (one) time each day. 06/03/20 25 Active atorvastatin (LIPITOR) 40 mg tabletIndication s:Essential hypertension Take 1 tablet (40 mg total) by mouth 1 (one) time each day. 90 tablet 1 06/19/20 25 Active dulaglutide (Trulicity) 3 mg/0.5 mL pen injector injectionIndicat ions:Type 2 diabetes mellitus with other specified complication, with long-term current use of insulin ([facility] V24, [facility] V28) Inject 0.5 mL (3 mg total) under the skin every 7 (seven) days. 2 mL 11 06/29/20 25 Active amLODIPine (NORVASC) 10 mg tabletIndication s:Essential hypertension TAKE 1 TABLET BY MOUTH 1 TIME EACH DAY. 90 tablet 1 09/02/20 Active glucose blood (OneTouch Ultra Test) test strip USE TO CHECK BLOOD SUGAR DAILY 100 strip 09/22/20 Active blood sugar diagnostic (OneTouch Verio test strips) test strip Use to check BS daily 100 each 02/17/20 25 025 Discontinued amLODIPine (NORVASC) 10 mg tabletIndication s:Essential hypertension Take 1 tablet (10 mg total) by mouth 1 (one) time each day. 90 each 1 02/25/20 25 025 Discontinued Active Problems Problem Noted Date Diagnosed Date Odynophagia 04/08/2025 Globus sensation 04/08/2025 Weight loss 04/08/2025 Cerebrovascular accident (CVA) 02/24/2025 A-fib 09/15/2024 Overview (09/15/2024): Pradaxa due to coumadin allergy CAD (coronary artery disease) 09/15/2024 Essential hypertension 09/15/2024 Hand pain 09/15/2024 History of PR (myocardial infarction) 09/15/2024 Overview (09/15/2024): Stress Test by Dr. Hernandez in 01/2013, stable Cirrhosis 03/06/2024 Chronic cough 06/12/2023 Overview (09/15/2024): Last [...] ENT for evaluation. 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 Overview (09/15/2024): 4.2cm x 4.2cm on chest CT 03/06/2018 Erectile dysfunction 07/04/2017 Vitamin B12 deficiency 10/10/2016 Dyslipidemia 02/14/2013 Encounters Date Type Department Care Team Description 08/03/2025 Telephone [facility] [address] [place] [address] Scooter Luong MD from Last 3 Months Immunizations Immunization Administration Dates Next Due Influenza Quadravalent, 0.5m l (Fluzone High-dose) 65yo and older 11/28/2020 Influenza trivalent, 0.5mL ( Fluzone High-dose) 65yo and older 05/24/2025,07/06/2023,08/04/2022,2017,07/04/2017 Influenza trivalent, with preservative (Fluzone; Afluria) 6mo and older 08/20/2015,10/21/2014 Pneumococcal conjugate 13 va lent (Prevnar 13, PCV13) 2mo and older 06/02/2016 RSV, bivalent, protein subun it RSVpreF, 0.5mL, Preservative Free (ABRYSVO) 50yo and older or 32 through 36 wks of 05/24/2025 Td Tetanus diptheria (Tdvax) 7yo and older 02/13/2014 Tdap Tetanus diptheria acell ular pertussis (Boostrix; Adacel) 7yo and older 05/24/2025 Surgical History Surgery Date Site/Laterality Comments KNEE [...] tension) Hand pain DX:Hand pain History of PR (myocardial infarction) 2004 DX:History of PR (myocardial infarction); COMMENT: Stress Test by Dr. Hernandez in 01/2013, stable CAD (coronary artery disease) DX :CAD (coronary artery disease) A-fib ([facility] V24, [facility] V28) 2004 DX:A-fib ([facility]); COMMENT: on pradaxa by Dr. hernandez Thyroid nodule 12/08/2022 TIA (transient ischemic attack) Hyperlipidemia Family History Medical History Relation Name Comments [...] drink = 0.6 oz pur e alcohol) Interpersonal Safety Answer Date Record ed Physical Abuse Unrecognized value 05/22/2025 Verbal Abuse Unrecognized value 05/22/2025 Sex and Gender Information Value Date Recorded Sex Assigned at Not on file Legal Sex Male 2:31 PM EST Gender Identity Not on file Sexual Orientation Not on file Last Filed Vital Signs Vital Sign Reading Time Taken Comments Blood Pressure 140/77 06/19/2025 12:44 PM EDT Pulse 83 06/19/2025 12:44 PM EDT Temperature 36.8 C (98.2 F) 05/22/2025 10:02 AM EDT Respiratory Rate 16 05/22/2025 10:2 2 AM EDT Oxygen Saturation 98% 05/22/2025 10: 22 AM EDT Inhaled Oxygen Concentration - - Weight 84.3 kg (185 lb 14.4 oz) 025 12:44 PM EDT Height 193 cm (6' 4 ) 06/19/2025 12:44 PM EDT Body Mass Index 22.63 06/19/2025 12:44 PM EDT Plan of Treatment Health Maintenance Due Date Last Done Comments Diabetes: Annual Foot Exam 01/09/1958 Diabetes: Annual Retina Eye Exam 01/09/1958 Zoster Vaccines (1 of 2) 01/09/1967 Pneumococcal Vaccine: 50+ Years (2 of 2 - PPSV23, PCV20, or PCV21) 07/28/2016 06/02/2016 Medicare Annual Wellness Visit 09/16/2022 Social Influencers of Health Screening 09/16/2022 Depression Screening 10/08/2024 COVID-19 Vaccine ( season) 2025 02/10/2022, 10/13/2021, 01/13/2021 Diabetes: Blood Sugar Control Test (HGBA1C) 10/10/2025 04/09/2025, 01/08/2025, 05/27/2024, Additional history exists Diabetes: Annual GFR (Glomerular Filtration Rate) 04/01/2026 04/01/2025, 05/27/2024 Hypertension/CHF/CAD Annual BMP Blood Test 04/01/2026 04/01/2025, 05/27/2024 Diabetes: Annual Urine Albumin-Creatinine Ratio (uACR) 04/06/2026 04/06/2025, 01/08/2025 Falls Risk Assessment 05/22/2026 05/22/2025 Cholesterol Screening (Lipid Panel) 04/01/2030 04/01/2025, 05/27/2024, 05/27/2024 DTaP,Tdap,and Td Vaccines (3 - Td or Tdap) 05/24/2035 05/24/2025, 02/13/2014 Hepatitis C Screening Completed 02/13/2014 Influenza Vaccine Completed 05/24/2025, , 08/04/2022, Additional history exists RSV Immunization Adult Patients Completed 05/24/2025 HIB Vaccines Aged Out No longer eligi [...] complication, with long-term current use of insulin ([facility] V24, [facility] V28) MICROALBUMIN AND CREATININE WITH RATIO, URINE 24H Routine 04/06/2025 1:02 PM EDT Type 2 diabetes mellitus with other specified complication, with long-term current use of insulin ([facility] V24, [facility] V28) BASIC METABOLIC PANEL Routine 04/01/2025 12:15 PM EDT Essential hypertension LIPID PANEL WITH REFLEX TO DIRECT LDL Routine 04/01/2025 12:15 PM EDT Essential hypertension HEPATITIS C SCREENING Routine 02/13/2014 from Last 3 Months or Most Recently Relevant to Health Maintenance Results * (ABNORMAL) Hemoglobin A1c (04/09/2025 10:11 AM EDT) Hemoglobin A1C 7.5(H) <6.5 % LAB CHEMISTRY METHOD 04/09/2025 1:54 PM EDT [facility] Mean Bld Glu Estim. 169 mg/dL LAB CHEMISTRY METHOD [facility]/09[facility]2025 [facility] Blood Venous blood specimen / Unknown Venipuncture / Unknown 04/09/2025 10:11 AM EDT 04/09/2025 10:11 AM EDT Soledad KELLOGG LAB BLOOD ORDERABLES Final Result [facility] [address] [place] [address], [place] [phone] * Microalbumin and creatinine with ratio, urine 24h (04/06/2025 1:02 PM EDT) Microalb, Ur 7.5 0.0 - 29.0 mg/L LAB CHEMISTRY METHOD 04/06/2025 8:24 PM EDT [facility] Creatinine, Urine 46.0 mg/dL LAB CHEMISTRY METHOD 04/06/2025 8:24 PM EDT [facility] Microalb, 24H Ur 21.4 <30.0 mg/24 hr LAB CHEMISTRY METHOD 04/06/2025 8:24 PM T [facility] Microalb/Creat Ratio 16 <30 mg/g creat LAB CHEMISTRY METHOD 04/06/2025 8:24 [facility] Urine Volume 2,850 mL LAB CHEMISTRY METHOD 04/06/2025 8:[address] [facility] Collection Interval, Ur 24 hr LAB CHEMISTRY METHOD 04/06/2025 8:24 PM T [facility] Urine Urine specimen from urethra / Unknown Non-blood Collection / Unknown 04/06/2025 1:02 PM EDT 04/06/2025 1:02 PM EDT Soledad KELLOGG LAB URINE ORDERABLES Final Result [facility] [address] [place] [address], [place] [phone] * (ABNORMAL) Lipid panel with reflex to direct LDL (04/01/2025 12:15 PM EDT) Cholesterol 106 0 - 200 mg/dL LAB CHEMISTRY METHOD 04/01/2025 5:03 PM EDT [facility] Triglycerides 151(H) 0 - 150 mg/dL LAB CHEMISTRY METHOD 04/01/2025 5:03 PM EDT [facility] HDL 29(L) >=40 mg/dL LAB CHEMISTRY METHOD 04/01/2025 5:03 PM EDT [facility] LDL Calculated 47 0 - 100 mg/dL LAB CHEMISTRY METHOD 04/01/2025 5:03 [facility] VLDL Cholesterol Teddy 30.2 mg/dL LAB CHEMISTRY METHOD 04/01/2025 5:[address] [facility] Non HDL Chol. (LDL+VLDL) 77 <145 mg/dL LAB CHEMISTRY METHOD 04/01/2025 5:[address] [facility] Chol/HDL Ratio 3.7 0.0 - 4.4 LAB CHEMISTRY METHOD 04/01/2025 5:[address] [facility] Blood Venous blood specimen / Unknown Venipuncture / Unknown 04/01/2025 12:15 PM EDT 04/01/2025 12:15 PM EDT us Scooter Luong MD LAB BLOOD ORDERABLES Final Res ult [facility] [address] [place] [address], [place] [phone] * (ABNORMAL) Basic metabolic panel (04/01/2025 12:15 PM EDT) Sodium 140 133 - 145 mmol/L LAB CHEMISTRY METHOD 04/01/2025 5:03 PM EDT [facility] Potassium 4.9 3.5 - 5.5 mmol/L LAB CHEMISTRY METHOD 04/01/2025 5:[address] [facility] Chloride 106 96 - 110 mmol/L LAB CHEMISTRY METHOD 04/01/2025 5:[address] [facility] CO2 24 21 - 32 mmol/L LAB CHEMISTRY METHOD 04/01/2025 5:[address] [facility] Anion Gap 10 3 - 11 LAB CHEMISTRY METHOD 04/01/2025 5:[address] [facility] Glucose 215(H) 70 - 100 mg/dL LAB CHEMISTRY METHOD 04/01/2025 5:[address] [facility] BUN 17 5 - 25 mg/dL LAB CHEMISTRY METHOD 04/01/2025 5:[address] [facility] Creatinine 1.36(H) 0.70 - 1.30 mg/dL LAB CHEMISTRY METHOD 04/01/2025 5:[address] [facility] eGFR 54(L) >=60 mL/min/1. 73m2 LAB CHEMISTRY METHOD 04/01/2025 5:[address] [facility] Comment:Calculation based on the Chronic Kidney Disease Epidemiology Collaboration (CKD-EPI) equation refit without adjustment for race. BUN/Creatinine Ratio 12.5 LAB CHEMISTRY METHOD 04/01/2025 5:[address] [facility] Calcium 9.8 8.5 - 10.5 mg/dL LAB CHEMISTRY METHOD 04/01/2025 5:[address] [facility] Blood Venous blood specimen / Unknown Venipuncture / Unknown 04/01/2025 12:15 PM EDT 04/01/2025 12:15 PM EDT us Scooter Luong MD LAB BLOOD ORDERABLES Final Res ult [facility] [address] [place] [address], * Hepatitis C Screening (02/13/2014) Hepatitis C Screening negative us Historical Provider HEALTH MAINTENANCE Final Result from Last 3 Months or Most Recently Relevant to Health Maintenance Insurance [employer] MEDICAID - [place] Care Teams Healthcare Analyst Relationship Specialty Start Date End Date Scooter Luong MD [address] [place] [id number] PCP - General Internal Medicine 09/15/24
== END 2025-09-25 12:41 | disposition home or self-care (01) ==
LOC: HO.HSM 12:09
PROVIDERS: PCP Internal Medicine; Visit Provider Nurse Practitioner
DX: F03.90 Unspecified dementia, unspecified severity, without behavioral disturbance, psychotic disturbance, mood disturbance, and anxiety (principal)
CPT/HCPCS: 99214

== ENCOUNTER 2025-10-05 16:01 | Outpatient (AMB) | payer OTHER, SELFPAY ==
--- NOTE | 2025-10-05 16:19 | A.OFFVIS_ITS ---
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 He is presenting for management of Alzheimer's disease. His reports that he is not sleeping or eating well, is often in a bad mood, and is non-adherent with his medications, stating they are not good for him. His behavioral symptoms have reportedly worsened, with his noting he talks to himself, looks for things in odd places, walks at night, and wants to go out at night. He also exhibits a bad temper, hyperactivity, depression, and has torn his clothes. The patient was previously given a mild medication for his behavior. He has had a prior EEG, with the last one possibly being in February or July, but records are not currently accessible. [facility] Medical History (Updated 10/05/25 @ 16:37 by Jeffrey Chavez MD) PAF (paroxysmal atrial fibrillation) HLD (hyperlipidemia) Hypertension Vascular dementia Depression Insomnia Migraine Cerebral microvascular disease Alzheimer disease Multifactorial dementia Review of Systems Narrative - Constitutional: Reports poor appetite. - Psychiatric: Reports bad mood, bad temper, depression, anxiety, agitation, and hyperactivity. - Neurological: Reports poor sleep, confusion, forgetfulness, and nocturnal wandering. Physical Exam Neuro Other: Mental Status: Alert and oriented to person, place, and time. Normal attention. Normal spontaneous speech, fluency, and comprehension. Cranial Nerves: CN II: Visual ruano full to confrontation, visual acuity intact. CN III, IV, : Pupils equal, round, reactive to light and accommodation. Extraocular movements are normal. CN V: Facial sensation is normal. CN VII: Facial movements symmetrical. CN VIII: Hearing intact to bedside conversation is normal. CN IX, X: Palate elevates symmetrically. CN XI: Shoulder shrug and head turn symmetrical. CN XII: Tongue midline without atrophy or fasciculations. Extrapyramidal: Full facial expressions and blinking. No rigidity. Movements are appropriate with no tremor or abnormality. Speech: Normal; no dysarthria or tremor. Assessment & Plan Assessment & Plan (1) Multifactorial dementia: Comment: CT brain WO at [facility] in 2021: Mild PT atrophy, mild MVD Code(s): F03.90 - Unspecified dementia, unspecified severity, without behavioral disturbance, psychotic disturbance, mood disturbance, and anxiety Category: Medical (2) Migraine: Code(s): G43.909 - Migraine, unspecified, not intractable, without status migrainosus Category: Medical Qualifiers: Migraine type: migraine (< 15 days per month) without aura Status migrainosus presence: without status migrainosus Intractability: not intractable Qualified Code(s): G43.009 - Migraine without aura, not intractable, without status migrainosus (3) Encephalopathy: Code(s): G93.40 - Encephalopathy, unspecified Category: Medical Qualifiers: Encephalopathy type: unspecified encephalopathy Qualified Code(s): G93.40 - Encephalopathy, unspecified Plan Impression: Encephalopathy with probably degenerative dementia with behavioral symptoms Rec: Escitaloprim 10mg one in am Olanzapine 2.5mg one at night EEG MR brain w/o I spoke with the patient's and confirmed his diagnosis of Alzheimer's disease. I explained that the disease presents with multiple symptoms, including confusion, forgetfulness, behavioral issues like anxiety and agitation, and sleep problems. We discussed that his behavioral symptoms are currently the most challenging. I have prescribed two medications: one for anxiety to be taken in the morning, and one for agitation and sleep to be taken at bedtime. I informed her that it will take about a week to see if these medications are effective. I advised her to stress to the patient that taking these medications is important to avoid potential hospitalization. I have ordered an MRI of the brain and an EEG for further assessment. I recommended a follow-up visit after the MRI is completed. We also discussed the possibility of needing to move him to a care facility if his is unable to manage his care at home. Orders: Orders Vitamin B12 and Folate Today G93.40 - Encephalopathy, unspecified Syphilis Screen Today G93.40 - Encephalopathy, unspecified MR head/brain wo con Today G93.40 - Encephalopathy, unspecified EEG Routine Today G93.40 - Encephalopathy, unspecified Coding Level of Care Code Est Pt Level 4 (96038) Diagnoses Multifactorial dementia F03.90 Migraine without aura and without status migrainosus, not intractable G43.009 Migraine type: migraine (< 15 days per month) without aura Status migrainosus presence: without status migrainosus Intractability: not intractable Encephalopathy, unspecified type G93.40 Encephalopathy type: unspecified encephalopathy
--- OUTSIDE RECORDS SUMMARY | 2025-10-05 17:51 | XMS_ITS | Clinical Summary ---
Author Organization [facility] Address [address] [place] [address] Phone Care Team Providers Care Telehealth Nurse Educator Name Role Phone Scooter Luong MD Primary Care Provider Allergies Active Allergy Reactions Criticality Noted Date [...] complication, with long-term current use of insulin ([facility] V24, [facility] V28) Take 1 tablet (10 mg total) by mouth 1 (one) time each day. 30 each 5 04/09/20 25 Active blood-glucose sensor (FreeStyle Medhat 3 Plus Sensor) deviceIndication s:Type 2 diabetes mellitus with other specified complication, with long-term current use of insulin ([facility] V24, [facility] V28) Box = Kit = EA 2 each 11 04/09/20 25 Active blood-glucose,re ceiver,cont (FreeStyle Medhat 3 Fred) miscIndications: Type 2 diabetes mellitus with other specified complication, with long-term current use of insulin ([facility] V24, [facility] V28) Use to check Bs 1 each 04/09/20 25 Active insulin glargine (Lantus Solostar U-100 Insulin) 100 unit/mL (3 mL) injection penIndications:T ype 2 diabetes mellitus with other specified complication, with long-term current use of insulin ([facility] V24, [facility] V28) 16 units SC at bedtime 45 mL 3 04/09/20 25 Active memantine (NAMENDA) 5 mg tablet TOME LEONID TABLETA POR V A ORAL DOS VECES AL D A 04/24/20 25 Active mirtazapine (REMERON) 7.5 mg tablet Take 1 tablet (7.5 mg total) by mouth at bedtime. Active [id number]-tte fran fumarate 15 mg iron tablet TOME [...] complication, with long-term current use of insulin ([facility] V24, [facility] V28) Inject 0.5 mL (3 mg total) under the skin every 7 (seven) days. 2 mL 11 06/29/20 Active amLODIPine (NORVASC) 10 mg tabletIndication s:Essential hypertension TAKE 1 TABLET BY MOUTH 1 TIME EACH DAY. 90 tablet 1 09/02/20 Active glucose blood (OneTouch Ultra Test) test strip USE TO CHECK BLOOD SUGAR DAILY 100 strip 09/22/20 Active blood sugar diagnostic (OneTouch Verio test strips) test strip Use to check BS daily 100 each 02/17/20 25 025 Discontinued Active Problems Problem Noted Date Diagnosed Date Odynophagia 04/08/2025 Globus sensation 04/08/2025 Weight loss 04/08/2025 Cerebrovascular accident (CVA) 02/24/2025 A-fib 09/15/2024 Overview (09/15/2024): Pradaxa due to coumadin allergy CAD (coronary artery disease) 09/15/2024 Essential hypertension 09/15/2024 Hand pain 09/15/2024 History of GA (myocardial infarction) 09/15/2024 Overview (09/15/2024): Stress Test [...] Type Department Care Team Description 08/03/2025 Telephone [facility] Cardiology [facility] [address] [place] [address] Scooter Luong MD from Last [...] tension) Hand pain DX:Hand pain History of GA (myocardial infarction) 2004 DX:History of GA (myocardial infarction); COMMENT: Stress Test by Dr. Hernandez in 01/2013, stable CAD (coronary artery disease) DX :CAD (coronary artery disease) A-fib (CMS/HCC V24, CMS/HCC V28) 2004 DX:A-fib ([facility]); COMMENT: on pradaxa by Dr. [...] complication, with long-term current use of insulin ([facility] V24, [facility] V28) MICROALBUMIN AND CREATININE WITH RATIO, URINE 24H Routine 04/06/2025 1:02 PM EDT Type 2 diabetes mellitus with other specified complication, with long-term current use of insulin ([facility] V24, [facility] V28) BASIC METABOLIC PANEL Routine 04/01/2025 12:15 PM EDT Essential hypertension LIPID PANEL WITH REFLEX TO DIRECT LDL Routine 04/01/2025 12:15 PM EDT Essential hypertension HEPATITIS C SCREENING Routine 02/13/2014 from Last 3 Months or Most Recently Relevant to Health Maintenance Results * (ABNORMAL) Hemoglobin A1c (04/09/2025 10:11 AM EDT) Hemoglobin A1C 7.5(H) <6.5 % LAB CHEMISTRY METHOD 04/09/2025 1:54 PM EDT [facility] Mean Bld Glu Estim. 169 mg/dL LAB CHEMISTRY METHOD 04/09/2025 1:54 PM EDT [facility] Blood Venous blood specimen / Unknown Venipuncture / Unknown 04/09/2025 10:11 AM EDT 04/09/2025 10:11 AM EDT [facility] LAB BLOOD ORDERABLES Final Result [facility] [address] [place] [address], [place] [phone] * Microalbumin and creatinine with ratio, urine 24h (04/06/2025 1:02 PM EDT) Microalb, Ur 7.5 0.0 - 29.0 mg/L LAB CHEMISTRY METHOD 04/06/2025 8:24 PM EDT [facility] Creatinine, Urine 46.0 mg/dL LAB CHEMISTRY METHOD 04/06/2025 8:24 PM EDT [facility] Microalb, 24H Ur 21.4 <30.0 mg/24 hr LAB CHEMISTRY METHOD 04/06/2025 8:24 PM EDT [facility] Microalb/Creat Ratio 16 <30 mg/g creat LAB CHEMISTRY METHOD 04/06/2025 8:24 PM EDT [facility] Urine Volume 2,850 mL LAB CHEMISTRY METHOD 04/06/2025 8:24 PM EDT [facility] Collection Interval, Ur 24 hr LAB CHEMISTRY METHOD 04/06/2025 8:24 PM EDT [facility] Urine Urine specimen from urethra / Unknown Non-blood Collection / Unknown 04/06/2025 1:02 PM EDT 04/06/2025 1:02 PM EDT us [facility] LAB URINE ORDERABLES Final Result [facility] [address] [place] [address], [place] [phone] * (ABNORMAL) Lipid panel with reflex to direct LDL (04/01/2025 12:15 PM EDT) Cholesterol 106 0 - 200 mg/dL LAB CHEMISTRY METHOD 04/01/2025 5:03 PM EDT [facility] Triglycerides 151(H) 0 - 150 mg/dL LAB CHEMISTRY METHOD 04/01/2025 5:03 PM EDT [facility] HDL 29(L) >=40 mg/dL LAB CHEMISTRY METHOD 04/01/2025 5:03 PM EDT [facility] LDL Calculated 47 0 - 100 mg/dL LAB CHEMISTRY METHOD 04/01/2025 5:03 PM EDT [facility] VLDL Cholesterol Teddy 30.2 mg/dL LAB CHEMISTRY METHOD 04/01[facility]2025 [facility] Non HDL Chol. (LDL+VLDL) 77 <145 mg/dL LAB CHEMISTRY METHOD 04/01/2025 5:03 PM EDT [facility] Chol/HDL Ratio 3.7 0.0 - 4.4 LAB CHEMISTRY METHOD 04/01/2025 5:03 PM EDT [facility] Blood Venous blood specimen / Unknown Venipuncture / Unknown 04/01/2025 12:15 PM EDT 04/01/2025 12:15 PM EDT us Scooter Luong MD LAB BLOOD ORDERABLES Final Res ult [facility] [address] [place] [address], * (ABNORMAL) Basic metabolic panel (04/01/2025 12:15 PM EDT) Sodium 140 133 - 145 mmol/L LAB CHEMISTRY METHOD 04/01/2025 5:03 PM T [facility] Potassium 4.9 3.5 - 5.5 mmol/L LAB CHEMISTRY METHOD 04/01/2025 5:03 [facility] Chloride 106 96 - 110 mmol/L LAB CHEMISTRY METHOD 04/01/2025 5:03 PM T [facility] CO2 24 21 - 32 mmol/L LAB CHEMISTRY METHOD 04/01/2025 5:03 PM [facility] Anion Gap 10 3 - 11 LAB CHEMISTRY METHOD 04/01/2025 5:03 PM [facility] Glucose 215(H) 70 - 100 mg/dL LAB CHEMISTRY METHOD 04/01/2025 5:03 PM [facility] BUN 17 5 - 25 mg/dL LAB CHEMISTRY METHOD 04/01/2025 5:03 PM [facility] Creatinine 1.36(H) 0.70 - 1.30 mg/dL LAB CHEMISTRY METHOD 04/01/2025 5:03 PM [facility] eGFR 54(L) >=60 mL/min/1. 73m2 LAB CHEMISTRY METHOD 04/01/2025 5:03 PM [facility] Comment:Calculation based on the Chronic Kidney Disease Epidemiology Collaboration (CKD-EPI) equation refit without adjustment for race. BUN/Creatinine Ratio 12.5 LAB CHEMISTRY METHOD 04/01/2025 5:03 PM [facility] Calcium 9.8 8.5 - 10.5 mg/dL LAB CHEMISTRY METHOD 04/01/2025 5:03 PM [facility] Blood Venous blood specimen / Unknown Venipuncture / Unknown 04/01/2025 12:15 PM EDT 04/01/2025 12:15 PM EDT us Scooter Luong MD LAB BLOOD ORDERABLES Final Res ult [facility] [address] [place] [address], * Hepatitis C Screening (02/13/2014) Hepatitis C Screening negative us Historical Provider HEALTH MAINTENANCE Final Result from Last 3 Months or Most Recently Relevant to Health Maintenance Insurance [employer] MEDICAID - [place] Care Teams Telehealth Nurse Educator Relationship Specialty Start Date End Date Scooter Luong MD [address] [place] [id number] PCP - General Internal Medicine 09/15/24
== END 2025-10-05 16:46 | disposition home or self-care (01) ==
LOC: HO.HSM 16:02
PROVIDERS: PCP Internal Medicine; Visit Provider Psychiatry & Neurology Neurology
DX: F03.90 Unspecified dementia, unspecified severity, without behavioral disturbance, psychotic disturbance, mood disturbance, and anxiety (principal); G43.009 Migraine without aura, not intractable, without status migrainosus; G93.40 Encephalopathy, unspecified
CPT/HCPCS: 99214

== ENCOUNTER → 2025-10-05 16:01 | Outpatient (BNVA) | payer OTHER, SELFPAY | PROVIDERS: PCP Internal Medicine; Visit Provider Psychiatry & Neurology Neurology | DX: G30.9 Alzheimer's disease, unspecified (principal); F02.818 Dementia in other diseases classified elsewhere, unspecified severity, with other behavioral disturbance; F41.9 Anxiety disorder, unspecified; G43.009 Migraine without aura, not intractable, without status migrainosus; G93.40 Encephalopathy, unspecified; R45.1 Restlessness and agitation | CPT/HCPCS: 99212 ==